=== PATIENT | male | born 1975 | race Caucasian/White ===

== ENCOUNTER 2017-01-13 12:47 | Emergency (ER) | payer OTHER ==
[~2017-01-13] VITALS: Ht 167.6 cm; Wt 78.0 kg
[2017-01-13 16:26] VITALS: BP 144/88
== END 2017-01-13 16:31 | disposition home or self-care (01) ==
LOC: EMS 12:50
DX: L03.116 Cellulitis of left lower limb (principal); L08.9 Local infection of the skin and subcutaneous tissue, unspecified; F17.210 Nicotine dependence, cigarettes, uncomplicated
CPT/HCPCS: 99283

== ENCOUNTER 2017-01-18 14:48 | Emergency (ER) | payer OTHER ==
[~2017-01-18] VITALS: Ht 172.7 cm; Wt 79.5 kg
[2017-01-18] MEDS ORDERED: GABA-533 PO (15:11)
[2017-01-18] MEDS ORDERED: CEPH500 PO (15:11)
[2017-01-18] MEDS ORDERED: IBUP-2071 PO (15:11)
[2017-01-18] MEDS ORDERED: LORazepam 2 MG TABLET PO ONE (16:15)
[2017-01-18] MEDS ORDERED: BUPIVACAINE HCL/PF 0.5% 10 ML VIAL SQ ONE (17:15)
[2017-01-18] MEDS ORDERED: PERTUSS(ACELL),DIPH,TET VAC/PF 0.5 ML VIAL IM ONE (17:30)
[2017-01-18 17:58] VITALS: BP 126/68
== END 2017-01-18 18:04 | disposition home or self-care (01) ==
LOC: EMS 14:49
DX: S81.812A Laceration without foreign body, left lower leg, initial encounter (principal); F17.210 Nicotine dependence, cigarettes, uncomplicated; W26.8XXA Contact with other sharp object(s), not elsewhere classified, initial encounter; Y93.89 Activity, other specified; Y92.89 Other specified places as the place of occurrence of the external cause; Y99.8 Other external cause status
CPT/HCPCS: 12002; 90471; 90715; 99283; J3490

== ENCOUNTER 2017-01-20 09:29 | Emergency (ER) | payer OTHER ==
[~2017-01-20] VITALS: Ht 167.6 cm; Wt 75.0 kg
[~2017-01-20 09:29] MED LIST: CEPH500 PO; GABA-533 PO; IBUP-2071 PO
[2017-01-20 09:59] VITALS: BP 129/84
[2017-01-20] MEDS ORDERED: TraMADol HCL 50 MG TABLET PO ONE (10:45)
== END 2017-01-20 10:51 | disposition home or self-care (01) ==
LOC: EMS 09:30
DX: Z48.00 Encounter for change or removal of nonsurgical wound dressing (principal); F17.210 Nicotine dependence, cigarettes, uncomplicated
CPT/HCPCS: 99283

== ENCOUNTER 2017-01-22 11:56 | Emergency (ER) | payer OTHER | END 2017-01-22 12:04 | disposition left against medical advice (07) | LOC: EMS 11:58 | DX: Z48.00 Encounter for change or removal of nonsurgical wound dressing (principal); Z53.21 Procedure and treatment not carried out due to patient leaving prior to being seen by health care provider ==

== ENCOUNTER 2017-01-25 13:12 | Emergency (ER) | payer OTHER ==
[~2017-01-25] VITALS: Ht 172.7 cm; Wt 75.0 kg
[2017-01-25 14:14] VITALS: BP 147/88
== END 2017-01-25 14:17 | disposition left against medical advice (07) ==
LOC: EMS 13:13
DX: Z48.02 Encounter for removal of sutures (principal); R00.0 Tachycardia, unspecified; F17.210 Nicotine dependence, cigarettes, uncomplicated
CPT/HCPCS: 93005; 99281

== ENCOUNTER 2017-01-26 10:01 | Emergency (ER) | payer OTHER ==
[~2017-01-26] VITALS: Ht 172.7 cm; Wt 75.0 kg
[2017-01-26] MEDS ORDERED: POVIDONE-IODINE 10% 15 ML SOLUTION UD TP ONE (10:45)
[2017-01-26] MEDS ORDERED: DIAZEPAM 5 MG TABLET PO ONE (10:45)
[2017-01-26 10:49] VITALS: BP 133/87
== END 2017-01-26 11:16 | disposition home or self-care (01) ==
LOC: EMS 10:01
DX: T81.30XA Disruption of wound, unspecified, initial encounter (principal); F43.0 Acute stress reaction; F41.9 Anxiety disorder, unspecified; F17.210 Nicotine dependence, cigarettes, uncomplicated
CPT/HCPCS: 99283

== ENCOUNTER 2017-01-29 16:13 | Emergency (ER) | payer OTHER ==
[~2017-01-29] VITALS: Ht 172.7 cm; Wt 75.0 kg
[2017-01-29 16:13] VITALS: BP 140/90
== END 2017-01-29 18:19 | disposition home or self-care (01) ==
LOC: EMS 16:13
DX: Z48.02 Encounter for removal of sutures (principal); F17.210 Nicotine dependence, cigarettes, uncomplicated
CPT/HCPCS: 99281

== ENCOUNTER 2017-02-09 11:39 | Emergency (ER) | payer MEDICAID, OTHER ==
[~2017-02-09] VITALS: Ht 172.7 cm; Wt 70.5 kg
[2017-02-09 11:49] VITALS: BP 132/94
[2017-02-09] MEDS ORDERED: ALPRAZolam 0.25 MG TABLET PO ONE (12:45)
== END 2017-02-09 12:56 | disposition home or self-care (01) ==
LOC: EMS 11:41
DX: F41.9 Anxiety disorder, unspecified (principal); F10.10 Alcohol abuse, uncomplicated; F17.210 Nicotine dependence, cigarettes, uncomplicated
CPT/HCPCS: 99284; 99406

== ENCOUNTER 2017-02-17 18:15 | Emergency (ER) | payer MEDICAID, OTHER ==
[~2017-02-17] VITALS: Ht 172.7 cm; Wt 75.0 kg
[~2017-02-17 18:15] MED LIST changes: -CEPH500 PO
[2017-02-17 19:53] VITALS: BP 158/80
== END 2017-02-17 20:05 | disposition left against medical advice (07) ==
LOC: EMS 18:16
DX: R55 Syncope and collapse (principal); F13.10 Sedative, hypnotic or anxiolytic abuse, uncomplicated; F17.210 Nicotine dependence, cigarettes, uncomplicated
CPT/HCPCS: 93005; 99283; 99406